=== PATIENT | female | born 1990 | race Caucasian/White ===

== ENCOUNTER 2016-11-10 15:37 | Emergency (ER) | payer OTHER ==
[2016-11-10 17:54] LABS: URINE BILIRUBIN NEGATIVE (NEGATIVE); URINE BLOOD NEGATIVE (NEGATIVE); URINE GLUCOSE (UA) NEGATIVE (NEGATIVE); URINE LEUKOCYTE ESTERASE NEGATIVE (NEGATIVE); URINE NITRITE NEGATIVE (NEGATIVE); URINE PROTEIN NEGATIVE (NEGATIVE); URINE UROBILINOGEN NORMAL (0-1 mg/dl)
[2016-11-10 17:56] LABS: URINE APPEARANCE CLEAR; URINE COLOR DARK YELLOW
== END 2016-11-10 18:29 | disposition home or self-care (01) ==
LOC: ED 15:37
DX: J11.1 Influenza due to unidentified influenza virus with other respiratory manifestations (principal); R30.0 Dysuria; F17.210 Nicotine dependence, cigarettes, uncomplicated